=== PATIENT | female | born 1945 | race Caucasian/White ===

== ENCOUNTER 2019-02-22 10:34 | Emergency (ER) | payer MEDICARE, BC ==
[~2019-02-22] VITALS: Ht 152.4 cm; Wt 84.1 kg
[2019-02-22 10:40] VITALS: Ht 152.4 cm; Wt 84.1 kg
[2019-02-22] MEDS ORDERED: ELIQUIS5 MG PO (10:42)
[2019-02-22] MEDS ORDERED: ALBUTEROL SULF8.5 GM INH (10:43)
[2019-02-22] MEDS ORDERED: CYMBALTA60 MG PO (10:43)
[2019-02-22] MEDS ORDERED: NEURONTIN600 MG PO (10:44)
[2019-02-22] MEDS ORDERED: MIRAPEX0.125 MG PO (10:44)
[2019-02-22] MEDS ORDERED: NORVASC5 MG PO (10:44)
[2019-02-22] MEDS ORDERED: PRAVASTATIN SOD10 MG PO (10:44)
[2019-02-22] MEDS ORDERED: OMEPRAZOLE20 M1 PO (10:45)
[2019-02-22] MEDS ORDERED: CYCLOBENZAPRINE10 MG PO (10:45)
[2019-02-22] MEDS ORDERED: HYDROCODON-ACE1 EA10 PO (10:45)
[2019-02-22] MEDS ORDERED: BUSPAR10 MG PO (10:46)
[2019-02-22] MEDS ORDERED: IMITREX100 MG PO (10:46)
[2019-02-22] MEDS ORDERED: LASIX40 MG PO (10:47)
[2019-02-22] MEDS ORDERED: ALDACTONE25 MG PO (10:47)
[2019-02-22] MEDS ORDERED: LASIX80 MG PO (10:47)
[2019-02-22] MEDS ORDERED: IPRAT-ALBUT 0.5-3 ML UPD (10:48)
[2019-02-22] MEDS ORDERED: FLORASTOR250 MG PO (12:29)
[2019-02-22] MEDS ORDERED: CLEOCIN HCL300 MG PO (12:29)
[2019-02-22] MEDS ORDERED: KEFLEX500 MG PO (12:29)
[2019-02-22 13:34] VITALS: BP 134/88
== END 2019-02-22 13:35 | disposition home or self-care (01) ==
LOC: D.ER 10:34
DX: S81.812A Laceration without foreign body, left lower leg, initial encounter (principal); S81.011A Laceration without foreign body, right knee, initial encounter; S51.811A Laceration without foreign body of right forearm, initial encounter; W01.0XXA Fall on same level from slipping, tripping and stumbling without subsequent striking against object, initial encounter; Y93.9 Activity, unspecified; Y92.89 Other specified places as the place of occurrence of the external cause; J44.9 Chronic obstructive pulmonary disease, unspecified